=== PATIENT | female | born 1955 | race Caucasian/White ===

== ENCOUNTER 2022-12-09 08:27 | Day surgery (SDC) | payer OTHER, SELFPAY ==
[2022-11-18 12:57] VITALS: BMI 25.8
[2022-12-09] VITALS (9 sets, daily range): BP systolic 113–153; BP diastolic 49–92; PULSE 68–97; RESP 10–18; TEMP 36.2–36.9; O2SAT 96–100; BMI 25.8
--- NOTE | 2022-12-09 | DI.RAD.S_ITS ---
PROCEDURE: XR HIP W PEL IF DONE LT 2V INDICATIONS: LEFT ANTERIOR HIP REPLACEMENT TECHNIQUE: 2 view(s) of the hip acquired. COMPARISON: None. FINDINGS: Bones: Patient is status post left hip arthroplasty, with hardware components in expected positions. The hip joint appears congruent. The visualized bony structures appear intact. Soft tissues: Overlying postoperative changes are noted. No suspicious soft tissue densities. IMPRESSION: Expected postsurgical change for left hip arthroplasty. Dictated by: Spring Bill MD, PhD on 12/09/2022 at 14:42 Approved by: Spring Bill MD, PhD on 12/09/2022 at 14:42
[2022-12-09] MEDS: ACETAMINOPHEN 325 MG TABLET 975 MG PO (09:25)
[2022-12-09] MEDS: CELECOXIB 200 MG CAPSULE PO (09:26)
[2022-12-09] MEDS: VANCOMYCIN 1,000 MG/200 ML PIGGYBACK 200 MG IV (09:29)
[2022-12-09] MEDS: LACTATED RINGERS 1,000 ML 42 ML IV ×2 (09:30→13:28)
--- NOTE | 2022-12-09 10:43 | PM.PREOP ---
Pre-operative Note Interval Note History & Physical reviewed/Exam performed by Physician: Yes Changes to H&P: No
--- NOTE | 2022-12-09 10:44 | P.OP_ITS ---
Operative Date/Time/Diagnoses Date of procedure: 12/09/22 Time of procedure: 11:30 Pre-op diagnosis: Left hip OA Post-op diagnosis: same Procedure & Clinicians Procedure: Left total hip arthroplasty anterior approach Same procedure as scheduled: Yes Indications: The patient has had progressively worsening left hip pain with radiographic payton ges consistent with arthritis. Non-operative management has failed and the patient has requested total hip replacement. The risks, benefits and alternatives to surgery were discussed with the patient prior to proceeding. Risks discussed included, but were not limited to, failure to relieve pain, leg length discrepancy, dislocation, stiffness, infection, nerve damage, deep venous thrombosis, pulmonary embolism, stroke, coma, heart attack, permanent paralysis and , as well as the potential need for eventual revision of the prosthetic. Surgeon: Ladonna Kelsey Youth Corrections Officer: Eliazar Dyer Anesthesia Type: General and Spinal Operative Notes Findings: Severe left hip OA, adequate stability, adequate bone Closure Type: primary Specimen(s): none sent Prosthetic devices, grafts, tissues, transplants, or devices: Kelsey and nephew R3 he is 52, neutral poly liner, one 6.5 mm screw, size 0 polar stem, 36 x +4 Oxinium Estimated Blood Loss (mL): 250 Blood products transfused: none Procedure in detail: The patient was brought to the operating room. Patient was carefully positioned in the supine position. Time-out was performed and antibiotics were given. Anesthesia was induced. She was positioned in the on the table in order to allow hyperextension of the hip. The left lower extremity was prepped and draped in a standard sterile fashion. An anterior left hip incision was made 1 fingerbreadth lateral to the anterior superior iliac spine and extended distally towards the greater trochanter. Dissection was carried out through skin and subcutaneous tissues. Superficial hemostasis was achieved. The fascia over the tensor fascia anita was defined and incised with a knife. Two Allis clamps were used to grasp the fascia. Tensor fascia anita was retracted laterally. A gelpi retractor was placed. Dissection was carried out down along the neck. The circumflex vessels were carefully identified and cauterized with the Aqua Mantis. A PA was used during the procedure and was essential for retraction and safe implantation of the components as well as assistance with hemostasis. There was good visualization of the femoral neck. A Cobra was placed superior to the neck and the gluteus fibers were carefully stripped from that superior aspect of the capsule. A 2nd retractor was placed along the inferior aspect of the neck. The rectus insertion along the capsule was partially released. A 3rd retractor that was then gently placed over the rim of the acetabulum under the rectus. Capsule was carefully incised and released from the intertrochanteric line circumferentially superior to the mid sagittal line and inferiorly to the mid sagittal line until the lesser trochanter was palpable. A tag stitch was placed both in the superior and inferior limb of the capsular insertion. Along the acetabulum capsule was also released up to the mid sagittal 12:00 position. A portion of the labrum was resected. A saw was used to perform an osteotomy at the level of the intertrochanteric line and the junction of the superior femoral neck leaving approximately 1 finger breath of residual inferior neck above the lesser trochanter. A 2nd cut was made along the femoral neck at the base of the head and a napkin ring of neck was removed. Corkscrew was placed in the femoral head and the head was removed without difficulty. Retractors were then repositioned around the acetabulum. Residual labrum was resected and additional osteophytes were removed. A reamer that was 4 mm below the templated size was placed by hand in the acetabulum and it was reamed to centralize the acetabulum. It was then reamed up to 2 under the templated size and fluoroscopy was brought in to confirm the position of the reaming and depth of reaming. I reamed 1 under the anticipated size and touched the rim with line to line reaming. A trial cup was placed and noted that it was appropriately sized and fluoroscopy confirmed position and depth. The component was open and inserted without difficulty fluoroscopic imaging was used to confirm that the cup had been adequa tely seated and was well positioned. It was further stabilized with a single screw. Neutral poly liner was placed. The cup was tested and noted to be stable. Attention was then directed to the femur. The femur was gently hyperextended additional capsular release was performed as needed in order to allow adequate visualization of the proximal femur with elevation of the femur. Patient was placed in a hyperextended slightly adducted position with maximum external rotation. Box osteotome was used to check for any residual neck as well as sclerotic bone along the trochanter. [place] pepper was placed in the femur. Additional broaching was performed. Canal finder was used to determine the alignment of the canal and position. Size -1 broach was placed. The canal was then appropriately broached up to the templated size as long as there was adequate stability of the broach and serial advancement of the broach without excessive impingement. Specific attention was directed at avoiding varus a ttempting to direct the distal aspect of the broach more anteriorly and avoiding excessive anteversion. Trial reduction showed acceptable range of motion, good stability, no posterior impingement, restorationist of leg length and appropriate lateral shuck. I also hyperflexed the hip and checked that there was no impingement anteriorly and there was good stability with flexion, adduction and internal rotation. Marcaine and Exparel were injected. The stem was placed without difficulty. Repeat trial reduction and x-ray showed acceptable overall position, length, and no evidence of the femoral fracture. Final head was placed. Wound was meticulously irrigated with normal saline. The hip was reduced and additional Exparel and Marcaine were injected. The capsule was closed with interrupted nonabsorbable sutures. The fascia of the tensor was closed with interrupted and running Vicryl. No drain was placed. Any tensor fascia anita muscle that appeared to be contused or injured which was a minimal amount was carefully resected. Capsule around the tensor was injected with Exparel and Marcaine. The skin was closed with barbed stitches for the subcutaneous tissue and skin. We also used surgical glue. The wound was dressed sterilely. Brief Betadine soak was also used and was meticulously irrigated with normal saline. Patient was transferred to recovery room in satisfactory condition. Complications: none Post-operative Condition: stable Disposition: Acute Care Plan for aftercare: The patient will be maintained on a standard total hip replacement protocol with weight bearing as tolerated and anterior hip precautions. The patient will recei ve Aspirin and sequential compression devices for DVT prophylaxis. The patient will be discharged home when safe for the home environment.
[2022-12-09] MEDS: CEFAZOLIN 2 GM/100 ML PREMIX 100 ML IV ×2 (11:35→20:53)
[2022-12-09] MEDS: TRANEXAMIC ACID 1,000 MG VIAL 2000 MG INJ ×2 (11:45→14:02)
--- NOTE | 2022-12-09 11:51 | SUR.OPER ---
Supine on padded [place] table with bilateral legs secured in padded positioning boots and suspended in positioning spars, operative leg in traction per surgeon. Head on one pillow. Arm on non-operative side secured on padded armboard <90 degrees abduction. Arm on operative side padded and resting across chest then secured with tape over sheet. Padded perineal post in place per surgeon.
[2022-12-09] MEDS: BUPIVACAINE 0.25% (PF) 60 ML, EPINEPHrine 0.3 MG INJ (11:53)
--- NOTE | 2022-12-09 12:00 | DI.RAD.S_ITS ---
PROCEDURE: XR HIP W PEL IF DONE LT 2V INDICATIONS: INNER OP ANTERIOR HIP TECHNIQUE: 2 view(s) of the hip acquired. COMPARISON: [facility], [place], XR HIP W PEL IF DONE LT 2V, 12/09/2022, 12:43. FINDINGS: Bones: Patient is status post left hip arthroplasty, with hardware components in expected positions. The hip joint appears congruent. The visualized bony structures appear intact. Soft tissues: Overlying postoperative changes are noted. No suspicious soft tissue densities. IMPRESSION: Expected postsurgical change for left hip arthroplasty. Dictated by: Spring Bill MD, PhD on 12/09/2022 at 15:07 Approved by: Spring Bill MD, PhD on 12/09/2022 at 15:07
[2022-12-09] MEDS: BUPIVACAINE LIPOSOME 266 MG/20 ML VIAL INJ (13:45)
[2022-12-09] MEDS: OXYCODONE IR 5 MG TABLET PO ×2 (14:25→15:12)
[2022-12-09] MEDS: ONDANSETRON 4 MG/2 ML INJ IV (14:25)
[2022-12-09] MEDS: ACETAMINOPHEN 325 MG TABLET 650 MG PO ×2 (15:12→20:53)
[2022-12-09] MEDS: IBUPROFEN 400 MG TABLET PO ×3 (15:12→23:19)
--- NOTE | 2022-12-09 16:27 | PC.NURSE ---
Assess- Patient is alert and oriented x4. Dressing to l.anterior hip is cdi. Patient complained of 10/10 pain, given another oxycodone 5mg with tylenol and ibuprofen and seems to be comfortable. She has LR at 100 infusing and is tolerating this well. O urge to void at this time. in room.
[2022-12-09] MEDS: LACTATED RINGERS 1,000 ML 100 ML IV (16:44)
--- NOTE | 2022-12-09 17:20 | PT.IIE ---
Current Diagnoses Unilateral primary osteoarthritis, left hip (12/09/22) Surgery Performed Operation Date: 12/09/22 10:45 Actual Procedures p Total Hip Arthroplasty/Anterior Approach(Left) - Ladonna Kelsey MD Surgical History (Last Updated 11/18/22 @ 13:12 by Marquis Miranda, RN) Hx of cholecystectomy Medical History (Last Updated 11/18/22 @ 13:12 by Marquis Miranda, JAMIA) Arthritis Physical Therapy Inpatient Evaluation/Re-Eval M1 PT/OT-IP Prior Functional Status Start: 12/09/22 17:23 Freq: NEEDED Status: Active Protocol: Document 12/09/22 17:20 DLM (Rec: 12/09/22 17:45 DL [id number]) Medical Review Prior Functional Status Medical History Reviewed Yes Diet/Fluid Consistency Regular Communication WFL, glasses Mobility and Gait Independent without device, has walking poles she used when having pain Activities of Daily Living and IADL's Independent Social History Household Members spouse Living Arrangements House Number of Floors (Floors) One Floor Number of Stairs To Enter/Railing? 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 M2 PT-IP Current Condition Start: 12/09/22 17:23 Freq: NEEDED Status: Active Protocol: Document 12/09/22 17:20 DLM (Rec: 12/09/22 17:45 [facility] [id number]) Physical Therapy Current Condition Current Condition Evaluation Date 12/09/22 Treatment Diagnosis left anterior HUNTER, impaired gait Onset Date 12/09/22 M3 PT-IP Subjective Start: 12/09/22 17:23 Freq: NEEDED Status: Active Protocol: Document 12/09/22 17:20 DLM (Rec: 12/09/22 17:45 [facility] [id number]) Subjective Physical Therapy Visit Type Type Initial Evaluation Visit Start Time 14:45 Visit Stop Time 17:20 Total Visit Minutes 35 Number of PHARMACY INFORMATICS SPECIALIST Visits 0 Physical Therapy Visit Comments Patient Comments She reports feeling a little light-headed when up moving. No hip pain once back in bed this visit Patient Goals Discharge home Therapy Pain Assessment Pain When Pain Assessed During Mobility Pain Present Pain Present Pain Reported Location Left Hip Intensity 4 Scale Used Numeric (0 - 10) Description Aching,Tender,With Movement Pain Behaviors Facial Grimacing Pain Management Techniques Apply Cold,Re-positioning, Timing of Activity with Medications M4 PT-IP Mobility and Gait Start: 12/09/22 17:23 Freq: NEEDED Status: Active Protocol: Document 12/09/22 17:20 DL (Rec: 12/09/22 17:45 [facility] [id number]) PT-Bed Mobility Assessment Supine to Sit Supine to Sit Standby Assistance Sit to Supine Sit to Supine Standby Assistance Scooting Scooting to Edge of Bed Independent Scooting Up and Down in Bed Independent PT-Transfer Assessment Sit to and From Stand Sit to and from Stand Contact Guard Assistance,Use of Upper Extremities Equipment Transfer Assistive Device Gait Belt,Front Wheeled Walker Transfers Transfer Destination Bedside Commode Transfer Technique Stand Step Pivot Transfer Ability Level of Assist Contact Guard Assistance,Use of Upper Extremities Comments Mobility Comments Pt using UE assist to get left LE in/out of bed. She describes feeling light headed with initial sitting edge of bed. Pt used bedside commode to urinate then returned to bed. Vital signs: 117/70, HR 87 sitting 120/49, HR 80 back in supine Gait Assessment Gait Gait Assistance Required: Contact Guard Assist Distance (Feet) 2 Able to Maintain Weight Bearing Status Yes During Gait Assistive Devices Assistive Device Gait Belt,Front Wheeled Walker Gait Deviations General Gait Pattern Antalgic,Decreased Stride Length Factors Limiting Gait Function Factors Limiting Gait Function Decreased Activity Tolerance, Decreased Strength,Limited Range of Motion,Pain,Poor Balance Comments Gait Comments she demonstrates good use of FWW and UE support to assist with mobility/gait, distance of gait limited by light- headedness this visit, also noted pt is pale while up PT-Balance Assessment Sitting Balance and Reactions Static Sitting Balance Ability Good Dynamic Sitting Balance Ability Good Standing Balance and Reactions Static Standing Balance Ability Good Dynamic Standing Balance Ability Fair Device Used FWW M5 PT-IP Objective Assessments Start: 12/09/22 17:23 Freq: NEEDED Status: Active Protocol: Document 12/09/22 17:20 [facility] (Rec: 12/09/22 17:45 [facility] [id number]) Orientation Orientation/Cognition Level of Alertness Alert Orientation Name,Age,Birthday,Month,Date, Year,Day of Week,Place, Situation Language Function Ability No Deficits Noted Safety Awareness Understands Safety Issues Memory Description No Deficits Noted Gross Range of Motion Upper Extremity ROM Assessment Within Functional Limits Lower Extremity ROM Assessment Left Impaired Impairments post-op restrictions anterior HUNTER with pain Strength Upper Extremity Strength Assessment Within Functional Limits Lower Extremity Strength Assessment Left Impaired Hip needs assist to move in bed Knee seated ext at least 3+/5 Ankle DF 5/5 Coordination Assessment Gross Coordination Gross Coordination WNL Sensation Assessment Comments Sensation Comments mild post-op numbness in left LE but can feel touch Muscle Tone Muscle Tone WNL Yes M6 PT-IP Treatment Start: 12/09/22 17:23 Freq: NEEDED Status: Active Protocol: Document 12/09/22 17:20 DLM (Rec: 12/09/22 17:45 DLM [id number]) Physical Therapy Treatment Exercises Exercises Ankle Pumps,Gluteal Sets,Quad Sets,Heel Slides Education Education Provided Precautions,Weight Bearing Status,Post-Op Packet,Safety Other Treatments Other Treatment Performed educated pt and her Spouse in anterior hip precautions, pt able to do at least 5 reps of each exercise (assisted with heel slide) M7 PT-IP Assessment and Plan Start: 12/09/22 17:23 Freq: NEEDED Status: Active Protocol: Document 12/09/22 17:20 DLM (Rec: 12/09/22 17:45 DL [id number]) PT Summary Assessment and Plan Potential Rehabilitation Potential Excellent Status of Condition at Evaluation Evolving Summary Impairments Pain,ROM,Strength,Balance,Bed Mobility,Transfers,Gait, Activity Tolerance Assessment Summary Shaheen is alert and resting in bed. She agrees to get up to participate in physical therapy day of surgery left anterior HUNTER. She reports her pain has improved with use of pain medication. She reports feeling light-headed with initial getting up which improved with seated rest break. She was able to advance to a transfer on/off the bedside commode to urinate. Vital signs show mild orthostatic hypotension. Pt returned to bed to rest after activity. Her nurse was notified of her light- headedness with activity. Her Spouse was present this visit for therapy. Will work towards discharge home tomorrow when BP more stable and pt can advance to functional gait distances and complete stair training. She is not ready to discharge home today due to light-headedness. Goals Bed Mobility Goal Independent Transfer Goal Independent,Front Wheeled Walker Gait Goal Independent,Front Wheel Walker Gait Distance 150 feet Other Goals up/down 2 steps with FWW and CG/min assist Days to Meet Goals 2 Frequency of Treatment Frequency Of Treatment Twice a Day Treatment Plan Physical Therapy Treatment Plan Bed Mobility Training,Transfer Training,Gait Training, Therapeutic Exercise,Balance Retraining,Post Op Education, Discharge Planning,Hot or Cold Pack Other Recommendations and Next Treatment advance distance of gait and Focus stair training Precautions Anterior Hip Precautions No Hip Extension,No Hip External Rotation Weight Bearing Status Weight Bearing Status Weight Bear as Tolerated Allowed Weight Bearing Amount (enter % left LE with FWW or #) (%) Recommendations To Nursing Amount of Assist Needed Standby Assistance Discharge Recommendations PT Discharge Recommendations Home with Assistance, Outpatient PT Other Discharge Recommendations Spouse is prepared to help at home Transportation Needs at Discharge Private Vehicle
[2022-12-09] MEDS: ASPIRIN EC 81 MG TABLET PO (20:54)
[2022-12-09] MEDS: DOCUSATE 100 MG CAPSULE PO (20:54)
[2022-12-10 02:00] VITALS: BP 120/51; PULSE 81; RESP 16; TEMP 36.6; O2SAT 96
[2022-12-10] MEDS: ACETAMINOPHEN 325 MG TABLET 650 MG PO ×2 (03:00→08:46)
[2022-12-10] MEDS: CEFAZOLIN 2 GM/100 ML PREMIX 100 ML IV (03:00)
[2022-12-10] MEDS: IBUPROFEN 400 MG TABLET PO ×2 (03:01→05:56)
[2022-12-10 04:58] VITALS: BP 113/53; PULSE 74; RESP 14; TEMP 36.7; O2SAT 98
[2022-12-10 05:53] LABS: Hematocrit 29.5 % (36-46); Hemoglobin 10.4 g/dL (12.0-16.0)
[2022-12-10 08:00] VITALS: BP 120/61; PULSE 81; RESP 16; TEMP 36; O2SAT 93
--- NOTE | 2022-12-10 08:36 | PM.DS.1 ---
History of Present Illness History of Present Illness Date Patient Seen: 12/10/22 Time Patient Seen: 08:10 Chief complaint: Left HUNTER Anterior *OPB* Narrative: Patient is sitting upright at the edge of the bed this morning with at bedside. She states she has little to no pain, well controlled with medication. She has not worked with PT yet, but says she has been up to the bathroom and walked around multiple times with no issue. Denies chest pain and shortness of breath. Discharge Providers Provider Discharge Date: 12/10/22 Primary care physician: Sonja Piña MD Consults: 12/09/22 06:00 Consult to Anesthesiology Routine Comment: Consulting Provider: Anesthesiologist Reason for consultation: Regional block for post operative pain control 12/09/22 14:56 Consult to Discharge Planning Routine Comment: Consult to Occupational Therapy Evaluate & Treat Comment: Physician Instructions: Evaluate and treat Consult to Physical Therapy Evaluate & Treat Comment: Physician Instructions: post op HUNTER protocol Discharge provider: Shayy Borden PA-C Summary Hospital Course Discharge Diagnosis: s/p R HUNTER anterior Hospital Course: Operative Date/Time/Diagnoses Date of procedure: 12/09/22 Time of procedure: 11:30 Pre-op diagnosis: Left hip OA Post-op diagnosis: same Procedure & Clinicians Procedure: Left total hip arthroplasty anterior approach Same procedure as scheduled: Yes Indications: The patient has had progressively worsening left hip pain with radiographic changes consistent with arthritis. Non-operative management has failed and the patient has requested total hip replacement. The risks, benefits and alternatives to surgery were discussed with the patient prior to proceeding. Risks discussed included, but were not limited to, failure to relieve pain, leg length discrepancy, dislocation, stiffness, infection, nerve damage, deep venous thrombosis, pulmonary embolism, stroke, coma, heart attack, permanent paralysis and , as well as the potential need for eventual revision of the prosthetic. Surgeon: Ladonna Kelsey Surveyor Helper: Eliazar Dyer Anesthesia Type: General and Spinal Operative Notes Findings: Severe left hip OA, adequate stability, adequate bone Closure Type: primary Specimen(s): none sent Prosthetic devices, grafts, tissues, transplants, or devices: Kelsey and nephew R3 he is 52, neutral poly liner, one 6.5 mm screw, size 0 polar stem, 36 x +4 Oxinium Estimated Blood Loss (mL): 250 Blood products transfused: none Status at Discharge Cognitive/behavioral status at discharge: oriented Functional status at discharge: uses cane/walker Overall status at discharge: patient is progressing back to baseline Exam Vital Signs (past 8 hours): - 12/10/22 02:00 12/10/22 04:58 Temperature 97.8 F 98.0 F Pulse Rate 81 74 Respiratory Rate 16 14 Blood Pressure 120/51 L 113/53 L Pulse Oximetry 96 98 Oxygen Flow Rate 0 0 Oxygen Delivery Method Room Air Oxygen Flow Rate 0 Narrative Exam Narrative: Pleasant 67-year-old female. Awake, alert, and oriented. Right anterior hip intraoperative bandage CDI. Strength and sensation intact to bilateral lower extremities. Bilateral calves soft, compressible, nontender with no palpable cords or masses. Objective Labs 12/10/22 05:40 Labs: Laboratory Results - last 24 hr 12/10/22 05:40 Hgb 10.4 L Hct 29.5 L PFSH Medical History (Updated 11/18/22 @ 13:12 by Marquis Miranda RN) Arthritis Surgical History (Updated 11/18/22 @ 13:12 by Marquis Miranda RN) Hx of cholecystectomy Social History household members: spouse Smoking Status: Never smoker alcohol intake: current Discharge Assessment & Plan Assessment and Plan Assessment: Patient is progressing well postop day 1 following right anterior total hip arthroplasty. Plan of Treatment: Discharge to home once safe and cleared by PT. Continue multimodal pain regimen as prescribed. Ice to hip as needed. Continue outpatient PT. Follow up with orthopedics in 2 weeks. Discharge Plan Discharge Plan Patient Disposition: Home Provider Discharge Comment: Discharge once safe and cleared by PT Discharge orders & Medications Discharge Orders: Discharge (Order); Ordered 12/10/22 Ordered By: Shayy Borden Prescriptions: Continued diclofenac sodium 75 mg tablet,delayed release (DR/EC) 75 mg PO DAILY PreserVision AREDS-2 250-90-40-1 mg Capsule 1 tab PO DAILY aspirin 81 mg Capsule 81 mg PO DAILY Follow up/Referrals: Sonja Piña MD [Primary Care Provider] - Ladonna Kelsey MD [Physician] - As previously scheduled (Follow up with Veronica Borden PA-C, on 12/23/2022 @ 4:[address] [facility] office in [place].) Diet/Activity/Treatments Diet: Diet as Tolerated Activity: Weightbearing as tolerated to left leg. Anterior hip precautions. Cold/Heat Therapy: Ice to hip as needed for pain. Skin/Wound/Dressing Care Report to your healthcare provider any signs of infection, such as:: chills, fever, night sweats, unusual drainage and unusual redness Dressing: May shower. Leave Aquacel dressing in place until follow up in office. No bathing or otherwise soaking incision. Call the office if the dressing becomes saturated inside. Visit Report/Discharge Packet Instructions: DI for Hip Replacement Stand Alone Forms: Patient Portal/API, Surgery Discharge Discharge Data Primary Care Provider: Sonja Piña Attending Provider: Ladonna Kelsey
--- NOTE | 2022-12-10 08:45 | PT.IPTN ---
Current Diagnoses Unilateral primary osteoarthritis, left hip (12/09/22) Surgery Performed Operation Date: 12/09/22 10:45 Actual Procedures p Total Hip Arthroplasty/Anterior Approach(Left) - Ladonna Kelsey MD Physical Therapy Treatment Note M2 PT-IP Current Condition Start: 12/09/22 17:23 Freq: NEEDED Status: Active Protocol: Document 12/09/22 17:20 DLM (Rec: 12/09/22 17:45 DLM [id number]) Physical Therapy Current Condition Current Condition Evaluation Date 12/09/22 Treatment Diagnosis left anterior HUNTER, impaired gait Onset Date 12/09/22 M3 PT-IP Subjective Start: 12/09/22 17:23 Freq: NEEDED Status: Active Protocol: Document 12/10/22 09:04 TS (Rec: 12/10/22 09:29 TS [id number]) Subjective Physical Therapy Visit Type Type Treatment Note Visit Start Time 08:45 Visit Stop Time 09:00 Total Visit Minutes 15 Number of [employer] Visits 1 Physical Therapy Visit Comments Patient Comments Pt agreeable to PT. Patient Goals Discharge home Therapy Pain Assessment Pain When Pain Assessed During Mobility Pain Present Pain Present Pain Reported Location Left Hip Intensity 3 Scale Used Numeric (0 - 10) Pain Behaviors Facial Grimacing Pain Management Techniques Apply Cold,Re-positioning, Timing of Activity with Medications M4 PT-IP Mobility and Gait Start: 12/09/22 17:23 Freq: NEEDED Status: Active Protocol: Document 12/10/22 09:04 TS (Rec: 12/10/22 09:29 TS [id number]) PT-Bed Mobility Assessment Supine to Sit Supine to Sit Standby Assistance Sit to Supine Sit to Supine Minimal Assistance Scooting Scooting to Edge of Bed Independent Scooting Up and Down in Bed Independent PT-Transfer Assessment Sit to and From Stand Sit to and from Stand Standby Assistance,Use of Upper Extremities Equipment Transfer Assistive Device Gait Belt,Front Wheeled Walker Comments Mobility Comments Pt found resting in bed, agreeable to PT. Supine to sit SBA with use of BUE support for uprighting trunk. Sit to stand w/FWW SBA, pt demonstrates good balance with no retroleaning in standing. She ambulated ~150'SBA with step to gait, provided cues for keeping FWW on ground. She performed stairs x2 SBA with FWW on platform step, provided cues for step sequencing. Pt was left back in bed, all needs met, RN notified. Gait Assessment Gait Gait Assistance Required: Standby Assistance Distance (Feet) 150 Able to Maintain Weight Bearing Status Yes During Gait Assistive Devices Assistive Device Gait Belt,Front Wheeled Walker Gait Deviations General Gait Pattern Antalgic,Decreased Stride Length Factors Limiting Gait Function Factors Limiting Gait Function Decreased Activity Tolerance, Decreased Strength,Limited Range of Motion,Pain,Poor Balance Comments Gait Comments See mobility comments. Stair Climbing Assessment Evaluation Level of Assist On Stairs Standby Assistance Devices Stair Climbing Assistive Devices Front Wheel Walker Technique/Endurance Stair Climbing Direction Ascend and Descend Stair Climbing Technique Step to Step Number of Steps Climbed 2 Comments Stair Climbing Comments See mobility comments. PT-Balance Assessment Sitting Balance and Reactions Static Sitting Balance Ability Normal Dynamic Sitting Balance Ability Good Standing Balance and Reactions Static Standing Balance Ability Good Dynamic Standing Balance Ability Fair Device Used FWW M5 PT-IP Objective Assessments Start: 12/09/22 17:23 Freq: NEEDED Status: Active Protocol: Document 12/09/22 17:20 DL (Rec: 12/09/22 17:45 [facility] [id number]) Orientation Orientation/Cognition Level of Alertness Alert Orientation Name,Age,Birthday,Month,Date, Year,Day of Week,Place, Situation Language Function Ability No Deficits Noted Safety Awareness Understands Safety Issues Memory Description No Deficits Noted Gross Range of Motion Upper Extremity ROM Assessment Within Functional Limits Lower Extremity ROM Assessment Left Impaired Impairments post-op restrictions anterior HUNTER with pain Strength Upper Extremity Strength Assessment Within Functional Limits Lower Extremity Strength Assessment Left Impaired Hip needs assist to move in bed Knee seated ext at least 3+/5 Ankle DF 5/5 Coordination Assessment Gross Coordination Gross Coordination WNL Sensation Assessment Comments Sensation Comments mild post-op numbness in left LE but can feel touch Muscle Tone Muscle Tone WNL Yes M6 PT-IP Treatment Start: 12/09/22 17:23 Freq: NEEDED Status: Active Protocol: Document 12/10/22 09:04 TS (Rec: 12/10/22 09:29 TS [id number]) Physical Therapy Treatment Education Education Provided Precautions,Weight Bearing Status,Post-Op Packet,Safety M7 PT-IP Assessment and Plan Start: 12/09/22 17:23 Freq: NEEDED Status: Active Protocol: Document 12/10/22 09:04 TS (Rec: 12/10/22 09:29 TS [id number]) PT Summary Assessment and Plan Potential Rehabilitation Potential Excellent Summary Impairments Pain,ROM,Strength,Balance,Bed Mobility,Transfers,Gait, Activity Tolerance Progress Towards Goals Progressing Toward Goals Assessment Summary Pt is progressing well with her mobility this morning. She progressed her gait to ~150' SBA with step to gait and she progressed to steps x2 w/FWW SBA. She recalled 2/2 precautions prior to mobility. Pt denied any dizziness with mobility. PT is recommending home w/ assist and outpatient PT. Goals Bed Mobility Goal Independent Transfer Goal Independent,Front Wheeled Walker Gait Goal Independent,Front Wheel Walker Gait Distance 150 feet Other Goals up/down 2 steps with FWW and CG/min assist Days to Meet Goals 2 Frequency of Treatment Frequency Of Treatment Twice a Day Treatment Plan Physical Therapy Treatment Plan Bed Mobility Training,Transfer Training,Gait Training, Therapeutic Exercise,Balance Retraining,Post Op Education, Discharge Planning,Hot or Cold Pack Other Recommendations and Next Treatment advance distance of gait and Focus stair training Precautions Anterior Hip Precautions No Hip Extension,No Hip External Rotation Weight Bearing Status Weight Bearing Status Weight Bear as Tolerated Allowed Weight Bearing Amount (enter % left LE with FWW or #) (%) Recommendations To Nursing Amount of Assist Needed Standby Assistance Discharge Recommendations PT Discharge Recommendations Home with Assistance, Outpatient PT Other Discharge Recommendations Spouse is prepared to help at home Transportation Needs at Discharge Private Vehicle
[2022-12-10] MEDS: VIT C/E/ZN/COPPR/LUTEIN/ZEAXAN CAPSULE 1 CAP PO (08:46)
[2022-12-10] MEDS: DOCUSATE 100 MG CAPSULE PO (08:46)
[2022-12-10] MEDS: ASPIRIN EC 81 MG TABLET PO (08:46)
--- NOTE | 2022-12-10 09:28 | OT.IP.EVAL ---
Current Diagnoses Unilateral primary osteoarthritis, left hip (12/09/22) Surgery Performed Operation Date: 12/09/22 10:45 Actual Procedures p Total Hip Arthroplasty/Anterior Approach(Left) - Ladonna Kelsey MD Past Medical History (Last Updated 11/18/22 @ 13:12 by Marquis Miranda, RN) Arthritis Surgical History (Last Updated 11/18/22 @ 13:12 by Marqusi Miranda, RN) Hx of cholecystectomy Occupational Therapy Inpatient Evaluation/Re-Eval M1 PT/OT-IP Prior Functional Status Start: 12/09/22 17:23 Freq: NEEDED Status: Discharge Protocol: Document 12/10/22 09:19 [facility] (Rec: 12/10/22 09:41 [facility] [id number]) Medical Review Prior Functional Status Medical History Reviewed Yes Diet/Fluid Consistency Regular Communication WFL, glasses Mobility and Gait Independent without device, has walking poles she used when having pain Activities of Daily Living and IADL's Independent but had pain. Social History Household Members spouse Living Arrangements House Number of Floors (Floors) One Floor Number of Stairs To Enter/Railing? 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 M2 OT-IP Current Condition Start: 12/10/22 09:28 Freq: Status: Discharge Protocol: Document 12/10/22 09:19 [facility] (Rec: 12/10/22 09:41 [facility] [id number]) Occupational Therapy Current Condition Current Condition Evaluation Date 12/10/22 Treatment Diagnosis S/P L HUNTER Diagnosis Onset Date 12/09/22 Post Operative Precautions Anterior Hip Precautions No Hip Extension,No Hip External Rotation M3 OT- IP Subjective and Pain Start: 12/10/22 09:28 Freq: Status: Discharge Protocol: Document 12/10/22 09:19 [facility] (Rec: 12/10/22 09:41 [facility] [id number]) OT- Subjective Occupational Therapy Visit Type Type Initial Evaluation Visit Start Time 09:19 Visit Stop Time 09:28 Total Visit Minutes 9 Occupational Therapy Visit Comments Patient Comments Pt wanting to sit in the recliner. Patient/Caregiver Goals To go home. OT Pain Assessment Pain When Pain Assessed At Rest Pain Present Pain Present Pain Reported Location Left Thigh Pain Behaviors Holding Area M4 OT- IP ADL's Start: 12/10/22 09:28 Freq: Status: Discharge Protocol: Document 12/10/22 09:19 [facility] (Rec: 12/10/22 09:41 [facility] [id number]) OT [id number] General Evaluation Self-Feeding Ability Independent OT ADL-Grooming Comments OT Grooming Comments Pt states did prior. OT ADL-Oral Care Comments Oral Care Comments Did prior. OT ADL-Dressing Comments OT Dressing Comments Able to educate pt to dress her left side first and take out last. Educated not to cross her LUE over her right leg and best to use LB dressing equipment or just bend forwards or have her left foot propped up for dressing needs. Pt's to be able to assist her. OT ADL-Toileting Comments OT Toileting Comments Educated to wear a pad to prevent from hurrying to the bathroom at night. OT ADL-Bathing Comments OT Bathing Comments Not performed. M5 OT- IP IADL's Start: 12/10/22 09:28 Freq: Status: Discharge Protocol: Document 12/10/22 09:19 [facility] (Rec: 12/10/22 09:41 [facility] [id number]) OT-Instrumental Activities of Daily Living Deficits IADL Deficits Identified Deficits Home Safety Awareness Awareness of Need for Assistance at Home Good Awareness Ability to Problem Solve Emergency Able to Problem Solve Situations M6 OT- IP Functional Cognition Start: 12/10/22 09:28 Freq: Status: Discharge Protocol: Document 12/10/22 09:19 [facility] (Rec: 12/10/22 09:41 [facility] [id number]) Cognitive Factors Limiting Selfcare Function Cognitive Ability Level of Alertness Alert Patient Orientation Name,Age,Birthday,Month,Date, Year,Day of Week,Place, Situation Attention Span Ability Capable of Focused Attention, Capable of Sustained Attention Ability to Follow Commands Able to Follow Multi-Step Commands Safety Awareness No Deficits Noted Cognitive Comments Cognitive Assessment Comments Pt able to follow commands for her hip precautions. OT- Vision and Hearing OT- Hearing Assessment OT- Hearing Assessment WFL OT- Vision Assessment Visual Acuity Glasses All The Time M7 OT- IP Mobility and Balance Start: 12/10/22 09:28 Freq: Status: Discharge Protocol: Document 12/10/22 09:19 [facility] (Rec: 12/10/22 09:41 [facility] [id number]) OT-Transfer Assessment Sit to and From Stand Sit to and from Stand Standby Assistance Transfers Transfer Ability Standby Assistance Technique Transfer Destination Bed,Chair Comments Mobility Comments SBA with FWW. Pt heavy use of her arm on the fww to unweight her LLE. OT- Balance Assessment Sitting Balance and Reactions Static Sitting Balance Ability Normal Dynamic Sitting Balance Ability Good Standing Balance and Reactions Static Standing Balance Ability Good Dynamic Standing Balance Ability Fair M8 OT- IP Objective Assessments Start: 12/10/22 09:28 Freq: Status: Discharge Protocol: Document 12/10/22 09:19 [facility] (Rec: 12/10/22 09:41 [facility] [id number]) OT Gross Range of Motion Upper Extremity Range of Motion Assessment Within Functional Limits M9 OT- IP Assessment and Plan Start: 12/10/22 09:28 Freq: Status: Discharge Protocol: Document 12/10/22 09:19 [facility] (Rec: 12/10/22 09:41 [facility] [id number]) OT Summary Assessment and Plan Potential Rehabilitation Potential Excellent Analytic Complexity at Evaluation Low Summary OT Impairments Functional Mobility,Dressing, Bathing,Shower Transfers Progress Towards Goals Progressing Toward Goals Assessment Summary Pt low complexity and doing well, pt needing use of hands to help lift her LLE for ADl and mobility needs. Pt has a supportive to assist at home. Pt to go home with assist and outpt PT. Goals Dressing Goal Independent Toileting Goal Independent Bathing Goal Standby Assistance Toilet Transfer Goal Independent Shower Transfer Goal Independent Days to Meet Goals 5 Frequency of Treatment Frequency Of Treatment Once a Day Treatment Plan OT Treatment Plan ADL Training,Functional Mobility,Patient/Family Education,Discharge Planning Discharge Recommendations OT Discharge Recommendations Home with Assistance, Outpatient PT Transportation Needs at Discharge Private Vehicle
== END 2022-12-10 09:54 | disposition home or self-care (01) ==
LOC: OR 08:30 → AC 08:32
PROVIDERS: PCP Family Medicine; Referring Provider Orthopaedic Surgery; Visit Provider Orthopaedic Surgery
PROC: (CPT 27130; principal; 2022-12-09 10:45)
DX: M16.12 Unilateral primary osteoarthritis, left hip (principal)
CPT/HCPCS: 27130; 36415; 73502; 76000; 85014; 85018; 97110; 97162; 97165; 97530; C1776; C9290; J0171; J0690; J1100; J2405